=== PATIENT | male | born 1940 | race Caucasian/White ===

== ENCOUNTER 2017-02-12 16:05 | Emergency (ER) | payer OTHER ==
[~2017-02-12] VITALS: Ht 167.6 cm; Wt 86.2 kg
[2017-02-12 16:21] VITALS: BP_SYST 151
[2017-02-12 18:47] VITALS: BP_SYST 151
== END 2017-02-12 18:47 | disposition home or self-care (01) ==
LOC: SED 16:05
DX: J32.9 Chronic sinusitis, unspecified (principal); E78.00 Pure hypercholesterolemia, unspecified; E11.9 Type 2 diabetes mellitus without complications; I10 Essential (primary) hypertension; Z90.49 Acquired absence of other specified parts of digestive tract; Z95.9 Presence of cardiac and vascular implant and graft, unspecified
CPT/HCPCS: 70486-TC; 99284

== ENCOUNTER 2018-07-14 20:17 | Emergency (ER) | payer OTHER ==
[~2018-07-14] VITALS: Ht 154.9 cm; Wt 71.7 kg
[2018-07-14 20:33] VITALS: BP_SYST 162
[2018-07-14] MEDS ORDERED: ONDANSETRON 4 MG ODT TAB PO ONE (22:15)
[2018-07-14] MEDS ORDERED: HYDROcodone/ACETAMIN 10-325 MG TAB PO ONE (22:15)
[2018-07-14 23:10] VITALS: BP_SYST 143
== END 2018-07-14 23:10 | disposition home or self-care (01) ==
LOC: SED 20:17
DX: F07.81 Postconcussional syndrome (principal); E11.9 Type 2 diabetes mellitus without complications; I10 Essential (primary) hypertension; Z86.79 Personal history of other diseases of the circulatory system
CPT/HCPCS: 70450; 70486; 99284; Q0162

== ENCOUNTER 2020-08-21 00:19 | Emergency (ER) | payer OTHER ==
[~2020-08-21] VITALS: Ht 167.6 cm; Wt 74.8 kg
[2020-08-21 00:25] VITALS: BP_SYST 129
[2020-08-21] MEDS ORDERED: KETOROLAC TROMETHAMINE 30 MG VIAL IM ONE (00:45)
[2020-08-21] MEDS ORDERED: KETOROLAC TROMETHAMINE 30 MG VIAL ONE (00:49)
[2020-08-21] MEDS ORDERED: BACITRACIN ZINC 15 GM TOPICAL OINTMENT TP ONE (01:30)
[2020-08-21] MEDS ORDERED: IBUP-1969 PO (01:36)
[2020-08-21 01:45] VITALS: BP_SYST 129
== END 2020-08-21 01:45 | disposition home or self-care (01) ==
LOC: SED 00:19
DX: S63.91XA Sprain of unspecified part of right wrist and hand, initial encounter (principal); I10 Essential (primary) hypertension; E11.9 Type 2 diabetes mellitus without complications; E78.00 Pure hypercholesterolemia, unspecified; W18.39XA Other fall on same level, initial encounter; Y93.89 Activity, other specified; Y92.89 Other specified places as the place of occurrence of the external cause; Y99.8 Other external cause status
CPT/HCPCS: 29125; 73130; 73560; 96372; 99284; J1885

== ENCOUNTER 2020-12-24 13:44 | Emergency (ER) | payer OTHER ==
[~2020-12-24] VITALS: Ht 167.6 cm; Wt 74.8 kg
[~2020-12-24 13:44] MED LIST: IBUP-1969 PO
[2020-12-24 13:45] VITALS: BP_SYST 100
--- NOTE | 2020-12-24 14:15 | NUR ---
ER DR. LAZAR EXAMINING PT IN [facility]
--- NOTE | 2020-12-24 15:20 | NUR ---
Placed in room 3 . Placed on recorder of deeds, blood pressure machine and pulse oximeter. To gown for exam. Side rails up.
--- NOTE | 2020-12-24 15:30 | NUR ---
PT CAME IN FROM HOME AFTER TRIPPING AND FALLING OVER SHOE LACE AND HITTING HEAD. PT PRESENTS WITH ABRASION TO TOP OF HEAD AND STATES HE PASSED OUT AFTER FALL ABOUT 1 HOUR PRIOR TO ARRIVAL. PT IS ON BLOOD THINNERS AT HOME. PT PRESENTS AOX4, V/S STABLE, CURRENTLY DENIES PAIN. ABLE TO MOVE ALL EXTREMETIES, DENIES ANY NUMBNESS OR DIZZINESS
[2020-12-24 15:56] LABS: BASOPHILS # (AUTO) 0.1 K/uL (0.0-0.2); BASOPHILS % (AUTO) 0.7 % (0.0-2.0); EOSINOPHILS # (AUTO) 0.2 K/uL (0.0-0.4); EOSINOPHILS % (AUTO) 1.5 % (0.0-4.0); HEMATOCRIT 37.8 % (36-54); HEMOGLOBIN 12.8 g/dL (14.0-18.0); LYMPHOCYTES % (AUTO) 19.6 % (20.5-51.5); MEAN CORPUSCULAR HEMOGLOBIN 31 pg (27-31); MEAN CORPUSCULAR HGB CONC 34 % (32-36); MEAN CORPUSCULAR VOLUME 92 fL (79.0-98.0); MONOCYTES # (AUTO) 1.3 K/uL (0.0-1.0); MONOCYTES % (AUTO) 13.2 % (1.7-9.3); NEUTROPHILS # (AUTO) 6.6 K/uL (1.8-7.7); PLATELET COUNT (AUTO) 273 K/uL (130-430); RED BLOOD CELL COUNT(AUTO) 4.09 MIL/uL (4.2-6.2); RED CELL DISTRIBUTION WIDTH 12.9 % (9.0-15.0); WHITE BLOOD COUNT (AUTO) 10.2 K/uL (4.8-10.8)
[2020-12-24 15:57] LABS: ANION GAP 7 (5-15); CALCIUM 9.1 mg/dL (8.4-11.0); CHLORIDE 109 mmol/L (98-107); CREATININE 0.87 mg/dL (0.55-1.30); GLUCOSE 201 mg/dL (70-99); POTASSIUM 4.6 mmol/L (3.5-5.1); SODIUM SERUM 140 mmol/L (136-145); UREA NITROGEN, BLOOD 32 mg/dL (8-21)
[2020-12-24 16:01] LABS: PROTHROMBIN TIME 10.1 SECS (9.5-12.5)
[2020-12-24 16:06] LABS: ALANINE AMINOTRANSFERASE 29 U/L (12-78); ALBUMIN 3.3 g/dL (3.4-4.8); ASPARTATE AMINOTRANSFERASE 16 U/L (10-37); TOTAL BILIRUBIN 0.4 mg/dL (0.0-1.0)
[2020-12-24 16:18] LABS: BILIRUBIN,URINE NEGATIVE (NEGATIVE); BLOOD, URINE NEGATIVE (NEGATIVE); CLARITY/URINE CLEAR (CLEAR); COLOR,URINE YELLOW (YELLOW); GLUCOSE,URINE 3+ (NEGATIVE); KETONES,URINE NEGATIVE (NEGATIVE); LEUKOCYTE ESTERASE ,URINE NEGATIVE (NEGATIVE); NITRITE, URINE NEGATIVE (NEGATIVE); PH,URINE 5.5 (5.0-8.0); PROTEIN URINE NEGATIVE (NEGATIVE); UROBILINOGEN,URINE 0.2 (0.2-1.0)
--- NOTE | 2020-12-24 16:27 | NUR ---
STATUS UPDATE GIVEN TO DAUGHTER GILBERT
--- NOTE | 2020-12-24 17:11 | NUR ---
PT AMBULATES TO BATHROOM WITH STEADY GAIT
--- NOTE | 2020-12-24 18:00 | NUR ---
PT RESTING, AAOX4, V/S STABLE
[2020-12-24 19:12] VITALS: BP_SYST 100
--- NOTE | 2020-12-24 19:13 | NUR ---
Patient given written and verbal discharge instructions and verbalizes understanding. ER MD discussed with patient the results and treatment provided. Patient in stable condition. ID arm band removed. NO Rx given. Patient educated on pain management and to follow up with PMD. Pain Scale 0/10. Opportunity for questions provided and answered. Medication side effect fact sheet provided.
== END 2020-12-24 19:12 | disposition home or self-care (01) ==
LOC: SED 13:44
DX: S00.03XA Contusion of scalp, initial encounter (principal); M79.641 Pain in right hand; I10 Essential (primary) hypertension; E11.9 Type 2 diabetes mellitus without complications; Z79.899 Other long term (current) drug therapy; W18.39XA Other fall on same level, initial encounter; Y93.89 Activity, other specified; Y92.89 Other specified places as the place of occurrence of the external cause; Y99.8 Other external cause status
CPT/HCPCS: 36415; 70450-TC; 71045; 72125-TC; 76376; 80053; 81003; 84484; 85025; 85610-TC; 85730-TC; 93005; 99285

== ENCOUNTER 2021-01-27 16:56 | Emergency (ER) | payer OTHER ==
[~2021-01-27] VITALS: Ht 165.1 cm; Wt 86.2 kg
[2021-01-27 16:57] VITALS: BP_SYST 144
[2021-01-27] MEDS ORDERED: GLUCAGON,HUMAN RECOMBINANT 1 MG VIAL IVP ONE (17:00)
[2021-01-27 20:17] VITALS: BP_SYST 147
== END 2021-01-27 20:17 | disposition home or self-care (01) ==
LOC: SED 16:56
DX: T17.928A Food in respiratory tract, part unspecified causing other injury, initial encounter (principal); I10 Essential (primary) hypertension; E11.9 Type 2 diabetes mellitus without complications; Z79.899 Other long term (current) drug therapy; X58.XXXA Exposure to other specified factors, initial encounter; Y93.89 Activity, other specified; Y92.89 Other specified places as the place of occurrence of the external cause; Y99.8 Other external cause status
CPT/HCPCS: 70360; 71045; 96374; 99284; J1610

== ENCOUNTER 2021-10-20 21:19 | Emergency (ER) | payer OTHER ==
[~2021-10-20] VITALS: Ht 167.6 cm; Wt 68.0 kg
[2021-10-20 21:41] VITALS: BP_SYST 115
[2021-10-20] MEDS ORDERED: LISI10TA29 PO (21:50)
[2021-10-20] MEDS ORDERED: GLIP10TA11 PO (21:50)
[2021-10-20] MEDS ORDERED: CYAN100T44 PO (21:50)
[2021-10-20 23:27] LABS: BASOPHILS # (AUTO) 0.1 K/uL (0.0-0.2); RED CELL DISTRIBUTION WIDTH 13.5 % (9.0-15.0)
[2021-10-20 23:36] LABS: ANION GAP 11 (5-15); CALCIUM 7.8 mg/dL (8.4-11.0); CHLORIDE 101 mmol/L (98-107); CREATININE 1.26 mg/dL (0.55-1.30); GLUCOSE 241 mg/dL (70-99); POTASSIUM 3.7 mmol/L (3.5-5.1); SODIUM SERUM 133 mmol/L (136-145); UREA NITROGEN, BLOOD 30 mg/dL (8-21)
[2021-10-20 23:37] LABS: BASOPHILS % (AUTO) 0.6 % (0.0-2.0); EOSINOPHILS % (AUTO) 0.1 % (0.0-4.0); HEMATOCRIT 40.5 % (36-54); LYMPHOCYTES # (AUTO) 2.1 K/uL (1.0-5.5); LYMPHOCYTES % (AUTO) 23.1 % (20.5-51.5); MEAN CORPUSCULAR HEMOGLOBIN 31 pg (27-31); MEAN CORPUSCULAR HGB CONC 35 % (32-36); MEAN CORPUSCULAR VOLUME 90 fL (79.0-98.0); MONOCYTES # (AUTO) 1.8 K/uL (0.0-1.0); MONOCYTES % (AUTO) 20.8 % (1.7-9.3); NEUTROPHILS # (AUTO) 4.9 K/uL (1.8-7.7); NEUTROPHILS % (AUTO) 55.4 % (40.0-70.0); PLATELET COUNT (AUTO) 251 K/uL (130-430); RED BLOOD CELL COUNT(AUTO) 4.51 MIL/uL (4.2-6.2); WHITE BLOOD COUNT (AUTO) 8.9 K/uL (4.8-10.8)
[2021-10-20 23:42] LABS: ALANINE AMINOTRANSFERASE 34 U/L (12-78); ALBUMIN 3.4 g/dL (3.4-4.8); ASPARTATE AMINOTRANSFERASE 31 U/L (10-37); TOTAL BILIRUBIN 0.3 mg/dL (0.0-1.0)
[2021-10-21] MEDS ORDERED: DOXYCYCLINE HYCLATE 100 MG in D5W 100 ML IV ONE (00:30)
[2021-10-21] MEDS ORDERED: cefTRIAXone 1 GM in D5W 50 ML IV ONE (00:30)
[2021-10-21] MEDS ORDERED: BEBTELOVIMAB (EUA) 175 MG/2 ML VIAL IV ONE (00:45)
[2021-10-21] MEDS ORDERED: cefTRIAXone 1 GM VIAL ONE (00:47)
[2021-10-21] MEDS ORDERED: DOXYCYCLINE HYCLATE 100 MG VIAL IV ONE (00:48)
[2021-10-21] MEDS ORDERED: ALBMDI INH (02:46)
[2021-10-21] MEDS ORDERED: NIRM1TAB PO (02:46)
[2021-10-21] MEDS ORDERED: ACET12.55 PO (02:46)
[2021-10-21] MEDS ORDERED: AUG875 PO (02:49)
[2021-10-21 03:06] VITALS: BP_SYST 132
== END 2021-10-21 03:08 | disposition home or self-care (01) ==
LOC: SED 21:19
DX: U07.1 COVID-19 (principal); J18.9 Pneumonia, unspecified organism; E78.00 Pure hypercholesterolemia, unspecified; Z79.899 Other long term (current) drug therapy
CPT/HCPCS: 36415; 71045; 80053; 83880; 85025; 87420; 87426; 87804 ×2; 93005; 96365; 96368; 99285; J0696; J3490